=== PATIENT | female | born 1970 | race Caucasian/White ===

== ENCOUNTER 2016-09-06 14:59 | Inpatient (IN) | payer OTHER ==
[~2016-09-06] VITALS: Ht 165.1 cm; Wt 91.0 kg
[2016-09-06] VITALS (11 sets, daily range): BP systolic 117–136; BP diastolic 68–91; PULSE 96–124; RESP 16–23; O2SAT 95–100
[~2016-09-06 14:59] MED LIST: Dexamethasone 4 mg/mL Inj ONE; Glycopyrrolate 0.2 MG/ML 1mL Inj ONE; Neostigmine 1 mg/mL 10 mL Inj ONE; Ondansetron 2 mg/mL 2 mL Inj ONE; Propofol 10,000 mCg/mL 20 mL Inj ONE; Rocuronium 10 mg/mL 5 mL Inj ONE; Succinylcholine Chloride 20 mg/mL 5 mL Inj ONE; fentaNYL-PF 50 mCg/mL 2 mL Inj ONE
--- NOTE | 2016-09-06 16:14 | ED.REPORT ---
HPI-Abd Pain F 40 and Over Date of Service September 06, 2016 ED Provider: Li Nieves History of Present Illness: right side abd pain, started yesterday vomit all night long then doing dry heaves. pain is getting worse. pain subsided a little and then worse around 11. Suha is primary care 01/08 pain last had broth at 10 am, crackers at 8 am Nursing Notes Stated Complaint: LOTS OF PAIN ON RIGHT SIDE Chief Complaint: Female Abdominal Pain Nursing Notes Reviewed: Yes Allergies: Coded Allergies: Contrast Media (Verified Allergy, Intermediate, 09/06/16) ioversol (Verified Allergy, Intermediate, HIVES,SKIN RASH, 09/06/16) Scheduled Biotin (Biotin) 5,000 Mcg Tab.rapdis 2,500 MCG PO 3 times a week Calcium Carbonate (Calcium) 600 Mg Tablet 600 MG PO DAILY Cholecalciferol (Vitamin D3) (Vitamin D3) 1,000 Unit Tab.chew 1,000 UNIT PO DAILY Fish Oil/Dha/Epa (Fish Oil 1,200 mg Fish Oil) 1 Each Capsule 1 EACH PO DAILY Folic Acid (Folic Acid) 0.8 Mg Capsule 0.8 MG PO DAILY Iron (Iron) 18 Mg Tablet 18 MG PO DAILY Magnesium Oxide (Magnesium) 250 Mg Tablet 250 MG PO DAILY Multivitamin (Once Daily) 1 Each Tablet 1 EACH PO DAILY Norethindrone Acetate (Norethindrone Acetate) 5 Mg Tablet 5 MG PO DAILY [id number]/FA/Omega3/Dha/Fish Oil ( Gummies) 400 Mcg-32.5 Mg (25 Mg-7.5 Mg) Tab.chew 1 EACH PO DAILY Spironolactone (Spironolactone) 50 Mg Tablet 50 MG PO BID Vit B Comp/C/FA/Iron/Vit E (Vitamin B Complex Tablet) 1 Each Tablet 1 EACH PO DAILY Vitamin E Mixed (Vitamin E) 400 Unit Capsule 400 UNIT PO DAILY Scheduled PRN Epinephrine (Epipen 2-Marty) 0.3 Mg/0.3 Ml Auto.injct 0.3 ML [id number] ONCE PRN PRN For Anaphyllaxis General Time Seen by MD: 16:13 Chief Complaint Abdominal pain Hx Obtained From: Patient Sudden in Onset?: No Onset Occurred: Yesterday Past Medical History Past Medical History Denies: Diabetes mellitus Past Surgical History left shoulder times 2, wisdom teeth Reports: (times 2), Cholecystectomy Smoking History Current Every Day Smoker (1/2 pack a day for 30 years) Social History Alcohol Use: 1-3 per day Drug Use: Denies drug use Other Social History: Occupation work at [employer] Ambulatory Status Independent Review of Systems Basic Review of Systems Eyes: Vision NL, No discharge ENT: Hearing NL, No pain, No nasal congestion, No pharyngeal pain Hematologic: No bleeding, No bruising Endocrine: No cold intolerance, No heat intolerance, No weight gain, No weight loss Skin: No bruising, No rash, No itch Allergy / Immune: No allergy Neurologic: NL mental status, No weakness, No numbness Psychiatric: Normal thought content Physical Exam Vital Signs Vital Signs (First) Date Time Temp Pulse Resp B/P Pulse Ox O2 Delivery O2 Flow Rate FiO2 09/06/16 15:02 38.3 124 16 136/91 97 Room Air Initial VS: Reviewed, Vital signs abnormal Head / Eyes: Atraumatic, Normocephalic, PERRL ENT: Mucous membranes moist, Conjunctiva normal, No scleral icterus Neck: Supple, Non-tender, Full range of motion Lymphatic: No lymphadenopathy Extremities: Vascular intact, Neuro intact, No swelling, No tenderness Skin: Warm, Dry, No cyanosis Neurologic: Alert, Oriented, Nonfocal Psychiatric: Mood/affect normal, Behavior normal, Normal thought content General/Constitutional: Awake, Alert Distress / Hydration: Positive: Distress mild Respiratory / Chest: Atraumatic, Breath sounds NL, Breath sounds = bilat Cardiovascular: Heart rate NL, Regular rhythm, Heart sounds NL, No gallop Abdomen: Atraumatic Tenderness/Guarding/Rebound: Positive: Guarding voluntary, McBurney's point tender, Tender RLQ... (Moderate) Bowel Sounds / Distention: Positive: Bowel sounds hypoactive Back: Atraumatic, Inspection NL, Full range of motion Interpretation & Diagnostics Lab Results Interpretation Result Diagram: 09/06/16 1617 09/06/16 1617 Test 09/06/16 16:17 09/06/16 16:28 White Blood Count 12.0th/mm3 (3.8-10.1) Red Blood Count 4.57mil/mm3 (3.90-5.20) Hemoglobin 15.5g/dL (12.0-15.6) Hematocrit 44.1% (35.0-46.0) Mean Corpuscular Volume 96.5fL (81-100) Mean Corpuscular Hemoglobin 33.9pg (27.0-35.0) Mean Corpuscular Hemoglobin Concent 35.1% (32.0-37.0) Red Cell Distribution Width 12.4% (12.3-15.4) Platelet Count 163bil/L (150-400) Neutrophils (%) (Auto) 82.9% (40-74) Lymphocytes (%) (Auto) 9.3% (14-46) Monocytes (%) (Auto) 7.1% (4-12) Eosinophils (%) (Auto) 0.3% (0-5) Basophils (%) (Auto) 0.2% (0-3) Sodium Level 136mEq/L (134-144) Potassium Level 3.8mEq/L (3.5-5.2) Chloride Level 98mEq/L (97-108) Carbon Dioxide Level 20mmol/L (18-29) Blood Urea Nitrogen 13mg/dL (6-24) Creatinine 0.64mg/dL (0.57-1.00) Estimat Glomerular Filtration Rate 144mL/min (>59) Glucose Level 103mg/dL (60-99) Lactic Acid Level 1.6mmol/L (0.4-2.0) Calcium Level 9.0mg/dL (8.5-10.1) Magnesium Level 2.0mg/dL (1.6-2.6) Total Bilirubin 1.0mg/dL (0.0-1.2) Aspartate Amino Transf (AST/SGOT) 21U/L (0-50) Alanine Aminotransferase (ALT/SGPT) 23U/L (0-32) Alkaline Phosphatase 73U/L (25-150) Total Protein 7.2g/dL (6.4-8.4) Albumin 4.3g/dL (3.4-5.0) Lipase 12U/L (13-60) Urine Color Yellow (YELLOW) Urine Appearance Clear (CLEAR,HAZY) Urine pH 8.0 (5.0-8.0) Urine Specific [place] 1.015 (1.003-1.035) Urine Protein Tracemg/dL (NEG,TRACE) Urine Glucose (UA) Negativemg/dL (NEGATIVE) Urine Ketones Negativemg/dL (NEGATIVE) Urine Occult Blood Moderate (NEGATIVE) Urine Nitrite Negative (NEGATIVE) Urine Bilirubin Negative (NEGATIVE) Urine Urobilinogen Normalmg/dL (NORMAL) Urine Leukocyte Esterase Negative (NEGATIVE) Urine RBC 3-10/hpf (0-2) Urine WBC 0-5/hpf (0-5) Urine Epithelial Cells Few/hpf (NONE-MOD) Urine Crystals None seen (NONE SEEN) Urine Bacteria Few/hpf (NONE-FEW) Urine Hyaline Casts None/lpf (NONE) Urine Granular Casts None seen (NONE SEEN) Urine Waxy Casts None seen (NONE SEEN) Urine Red Blood Cell Casts None seen (NONE SEEN) Urine White Blood Cell Casts None seen (NONE SEEN) Urine Mucus None seen (None Seen) Urine Trichomonas None seen (NONE SEEN) Urine Yeast None (NONE SEEN) Urinalysis Comment None Urine Culture Reflexed Not indicated CT Abd / Pelvis Interpretation PROCEDURE: CT ABDOMEN AND PELVIS WITHOUT CONTRAST ([id number]) INDICATIONS: lower right side abd pain TECHNIQUE: After the administration of oral contrast, 5 mm thick sections acquired from the diaphragms to the symphysis. 5 mm coronal and sagittal reformats were performed. For radiation dose reduction, the following was used: automated exposure control, adjustment of mA and/or kV according to patient size. COMPARISON: None. FINDINGS: Image quality: Excellent. ABDOMEN: Lung bases: Lung bases are clear. Heart size is normal. Presumed calcified granuloma projecting the right paraspinal musculature on image 19, nonspecific. Solid organs: Liver and spleen are normal in size. Gallbladder surgically absent. Pancreas is normal in size. No adrenal nodules. Both kidneys are normal in size, without hydronephrosis or nephrolithiasis. Peritoneum and bowel: No free fluid or air. The appendix is enlarged and there is a 9 mm appendicolith present on image 60 series 2. There is periappendiceal stranding. No definite abscess identified. No extraluminal gas is seen to suggest perforation. The rectum is grossly unremarkable. No bowel obstruction Nodes and vessels: No retroperitoneal or mesenteric adenopathy by size criteria. Aorta and inferior vena cava are normal in size. Miscellaneous: Small fat-containing periumbilical hernia PELVIS: Genitourinary: Bladder wall thickness is normal. Miscellaneous: No inguinal hernias or adenopathy. Bones: No suspicious bony lesions. No vertebral body compression fractures. IMPRESSION: Acute appendicitis with large 9 mm appendicolith. No abscess or free air identified. Findings are personally telephoned and discussed with Li GORDON 1751 hours on 09/06/16 Dictated by: Benito Enriquez M.D. on 09/06/2016 at 17:43 Approved by: Benito Enriquez M.D. on 09/06/2016 at 17:52 Re-Eval/Medical Decision Med Decision/Clinical Course 45 year old female with onset of abd pain yeasterday, vomiting in the evening with pain localizing to right lower quadrant today. CT does show acute appy. Surgery is called, she will be going to surgery this evening Discharge & Departure Primary Impression: Acute appendicitis Acute appendicitis type: with localized peritonitis Qualified Code: K35.3 - Acute appendicitis with localized peritonitis Disposition: ADMITTED TO HOSPITAL Referrals: Isreal Hanson MD (PCP) EDSupervising Provider for APC: Romaine Galan DO copies to: Isreal Hanson MD, Sue ARNP September 06, 2016 16:14
[2016-09-06] MEDS ORDERED: Ondansetron 2 mg/mL 2 mL Inj IVPUSH ONE (16:25)
[2016-09-06] MEDS ORDERED: 0.9% Sodium Chloride 1,000 ML IV ONE (16:25)
[2016-09-06 16:27] LABS: BASOPHILS % (AUTO) 0.2 % (0-3); EOSINOPHILS % (AUTO) 0.3 % (0-5); MONOCYTES % (AUTO) 7.1 % (4-12); Mean Corpuscular Hemoglobin 33.9 pg (27.0-35.0); Mean Corpuscular Volume 96.5 fL (81-100); NEUTROPHILS % (AUTO) 82.9 % (40-74); Platelet Count 163 bil/L (150-400)
[2016-09-06 16:48] LABS: APPEARANCE,URINE CLEAR (CLEAR,HAZY); COLOR,URINE YELLOW (YELLOW); OCCULT BLOOD,URINE MODERATE (NEGATIVE); UROBILINOGEN,URINE NORMAL (NORMAL)
[2016-09-06] MEDS: HYDROmorphone 0.5 mg/0.5 mL iSecure Syringe IVPUSH PRN ×5 (17:00→21:13)
--- NOTE | 2016-09-06 17:53 | DRSVH ---
PROCEDURE: CT ABDOMEN AND PELVIS WITHOUT CONTRAST ([id number]) INDICATIONS: lower right side abd pain TECHNIQUE: After the administration of oral contrast, 5 mm thick sections acquired from the diaphragms to the sy mphysis. 5 mm coronal and sagittal reformats were performed. For radiation dose reduction, the foll owing was used: automated exposure control, adjustment of mA and/or kV according to patient size. COMPARISON: None. FINDINGS: Image quality: Excellent. ABDOMEN: Lung bases: Lung bases are clear. Heart size is normal. Presumed calcified granuloma projecting th e right paraspinal musculature on image 19, nonspecific. Solid organs: Liver and spleen are normal in size. Gallbladder surgically absent. Pancreas is norm al in size. No adrenal nodules. Both kidneys are normal in size, without hydronephrosis or nephroli thiasis. Peritoneum and bowel: No free fluid or air. The appendix is enlarged and there is a 9 mm appendicol ith present on image 60 series 2. There is periappendiceal stranding. No definite abscess identified. No extraluminal gas is seen to suggest perforation. The rectum is grossly unremarkable. No bowel obs truction Nodes and vessels: No retroperitoneal or mesenteric adenopathy by size criteria. Aorta and inferior vena cava are normal in size. Miscellaneous: Small fat-containing periumbilical hernia PELVIS: Genitourinary: Bladder wall thickness is normal. Miscellaneous: No inguinal hernias or adenopathy. Bones: No suspicious bony lesions. No vertebral body compression fractures. IMPRESSION: Acute appendicitis with large 9 mm appendicolith. No abscess or free air identified. Findings are per sonally telephoned and discussed with Li Nieves [facility] 1751 hours on 09/06/16 Dictated by: Benito Enriquez M.D. on 09/06/2016 at 17:43 Approved by: Benito Enriquez M.D. on 09/06/2016 at 17:52
[2016-09-06] MEDS ORDERED: MULT-666 PO (20:04)
[2016-09-06] MEDS ORDERED: SPIR50TA2 PO (20:04)
[2016-09-06] MEDS ORDERED: PNV11TAB5 PO (20:04)
[2016-09-06] MEDS ORDERED: EPIN0.3P2 INTRAMU040 (20:04)
[2016-09-06] MEDS ORDERED: NORE5TAB PO (20:04)
[2016-09-06] MEDS ORDERED: VIT1TABL83 PO (20:04)
[2016-09-06] MEDS ORDERED: CHOL10008 PO (20:04)
[2016-09-06] MEDS ORDERED: BIOT5000 PO (20:04)
[2016-09-06] MEDS ORDERED: IRON18TA PO (20:04)
[2016-09-06] MEDS ORDERED: MAGN250T29 PO (20:04)
[2016-09-06] MEDS ORDERED: VITA400C64 PO (20:04)
[2016-09-06] MEDS ORDERED: CALC600T12 PO (20:04)
[2016-09-06] MEDS ORDERED: FISH1CAP15 PO (20:04)
[2016-09-06] MEDS ORDERED: FOLI0.8C PO (20:04)
[2016-09-06] MEDS ORDERED: Lactated Ringer's 1,000 ML IV ONE (21:38)
[2016-09-06] MEDS ORDERED: Ampicillin-Sulbactam Inj 3,000 MG in 0.9% Sodium Chloride 100 ML IV ONE (21:45)
[2016-09-06] MEDS ORDERED: Bupivacaine-MPF 0.5% W/EPI 30 mL Inj INFILTRATE ONE (21:55)
--- NOTE | 2016-09-06 22:16 | PCM.HPANE ---
Patient Data Date of Service: September 06, 2016 Surgeon Admitting Provider:Ron Cedeño MD Attending Provider:Ron Cedeño MD Primary Care Physician:Isreal Hanson MD Other Provider: Reason for Visit Acute Appy Ht/WT & BMI Height (Feet): 5 Height (Inches): 5 Weight (Kilograms): 90.91 Body Mass Index Allergies Coded Allergies: Contrast Media (Verified Allergy, Intermediate, 09/06/16) ioversol (Verified Allergy, Intermediate, HIVES,SKIN RASH, 09/06/16) Past Anesthesia History Anesthesia History: Denies:: Abnormal Airway, Anesthesia Reactions, Fam Anesthesia Reaction, Malignant Hyperthermia Diabetes History Hx Diabetes?: No Medications Hypertension Medication: No Home Meds Incl Beta Ivan: No Reported Medications Vitamin E Mixed (Vitamin E)400 Unit [id number] Unit PO DAILY 30 Days 09/06/16 Cholecalciferol (Vitamin D3) (Vitamin D3)1,000 Unit Tab.chew1,000 Unit PO DAILY 09/06/16 Vit B Comp/C/FA/Iron/Vit E (Vitamin B Complex Tablet)1 Each Tablet1 Each PO DAILY 09/06/16 Spironolactone 50 Mg [id number] Mg PO BID #180 09/06/16 Hfe790/FA/Omega3/Dha/Fish Oil ( Gummies)400 Mcg-32.5 Mg (25 Mg-7.5 Mg) Tab.chew1 Each PO DAILY 09/06/16 Norethindrone Acetate 5 Mg Tablet5 Mg PO DAILY #90 09/06/16 Multivitamin (Once Daily)1 Each Tablet1 Each PO DAILY 09/06/16 Magnesium Oxide (Magnesium)250 Mg [id number] Mg PO DAILY 09/06/16 Iron 18 Mg Nunldz93 Mg PO DAILY 09/06/16 Folic Acid 0.8 Mg Capsule0.8 Mg PO DAILY 09/06/16 Fish Oil/Dha/Epa (Fish Oil 1,200 mg Fish Oil)1 Each Capsule1 Each PO DAILY 09/06/16 Epinephrine (Epipen 2-Marty)0.3 Mg/0.3 Ml Auto.injct0.3 Ml [id number] ONCE PRN For Anaphyllaxis #6 09/06/16 Calcium Carbonate (Calcium)600 Mg [id number] Mg PO DAILY 09/06/16 Biotin 5,000 Mcg Tab.rapdis2,500 Mcg PO 3 times a week 09/06/16 History History of ENT Problems?: No HEENT History: Denies:: Abnormal Airway Denture Type: None Teeth Condition: Within Normal Limits Hx of Heart Problems?: No Cardiovascular History: Denies:: Congestive Heart Failure Hypertension Hx of Respiratory Problem?: No Respiratory History: Denies:: Tuberculosis Hx Neurologic Problems?: No Hx of GI Problems?: No Hx of Problems?: No Hx Musculoskeletal Problems?: No Hx of Psycho/Social Problems?: No Hx Surgeries?: Yes Hx Diabetes: No Smoking Status: Current Every Day Smoker Stop/Bang RHEA Risk Assessment: Low Risk, <3 Yes Risk Assessment Category Category 1A: Patient has history of documented sleep apnea, and HAS NOT received any narcotic, sedative or anesthesia administration during this stay. Category 1B: Patient has history of documented sleep apnea, and HAS received any narcotic , sedative or anesthesia administration during this stay Category 2: Patient has SUSPECTED Obstructive Sleep Apnea, and HAS received any narcotic , sedative or anesthesia administration during this stay. Category 3: Patient has SUSPECTED Obstructive Sleep Apnea and HAS NOT received narcotic, sedative or anesthesia administration during this stay. Category 4: Outpatient in Procedural Areas with known sleep apnea or who screen positive for High Risk via the STOP/BANG questionnaire. Exam Exam Vital Signs Vital Signs Date Time Temp Pulse Resp B/P Pulse Ox O2 Delivery O2 Flow Rate FiO2 09/06/16 19:41 37.4 102 119/83 96 Room Air 09/06/16 18:03 105 20 124/75 96 Room Air 09/06/16 15:02 38.3 124 16 136/91 97 Room Air General Appearance: Alert, Oriented X3, Cooperative, Mild Distress HEENT/AIRWAY: MP 3 Lungs: Clear to Auscultation, Normal Air Movement Heart: Exam Unremarkable, Regular Rate/Rhythm, No Murmurs/Rubs/Gallops Meds/Labs/Diagnostics Admission Meds Current Medications Ondansetron HCl 4 mg 4 mg ONCE ONCE IVPUSH Last administered on 09/06/16 17:00 ; Start 09/06/16 at 16:25; Stop 09/06/16 at 16:31; Status DC Sodium Chloride (Normal Saline) 1,000 ml @ 0 mls/hr Q0M ONCE IV Last administered on 09/06/16 17:00; Start 09/06/16 at 16:25; Stop 09/06/16 at 16:31; Status DC Ketorolac Tromethamine (Toradol Inj) 30 mg ONCE ONCE IVPUSH Last administered on 09/06/16t 17:00; Start 09/06/16 at 16:25; Stop 09/06/16 at 16:31; Status DC Labs Test 09/06/16 16:17 09/06/16 16:28 White Blood Count 12.0th/mm3 (3.8-10.1) Red Blood Count 4.57mil/mm3 (3.90-5.20) Hemoglobin 15.5g/dL (12.0-15.6) Hematocrit 44.1% (35.0-46.0) Mean Corpuscular Volume 96.5fL (81-100) Mean Corpuscular Hemoglobin 33.9pg (27.0-35.0) Mean Corpuscular Hemoglobin Concent 35.1% (32.0-37.0) Red Cell Distribution Width 12.4% (12.3-15.4) Platelet Count 163bil/L (150-400) Neutrophils (%) (Auto) 82.9% (40-74) Lymphocytes (%) (Auto) 9.3% (14-46) Monocytes (%) (Auto) 7.1% (4-12) Eosinophils (%) (Auto) 0.3% (0-5) Basophils (%) (Auto) 0.2% (0-3) Sodium Level 136mEq/L (134-144) Potassium Level 3.8mEq/L (3.5-5.2) Chloride Level 98mEq/L (97-108) Carbon Dioxide Level 20mmol/L (18-29) Blood Urea Nitrogen 13mg/dL (6-24) Creatinine 0.64mg/dL (0.57-1.00) Estimat Glomerular Filtration Rate 144mL/min (>59) Glucose Level 103mg/dL (60-99) Lactic Acid Level 1.6mmol/L (0.4-2.0) Calcium Level 9.0mg/dL (8.5-10.1) Magnesium Level 2.0mg/dL (1.6-2.6) Total Bilirubin 1.0mg/dL (0.0-1.2) Aspartate Amino Transf (AST/SGOT) 21U/L (0-50) Alanine Aminotransferase (ALT/SGPT) 23U/L (0-32) Alkaline Phosphatase 73U/L (25-150) Total Protein 7.2g/dL (6.4-8.4) Albumin 4.3g/dL (3.4-5.0) Lipase 12U/L (13-60) Urine Color Yellow (YELLOW) Urine Appearance Clear (CLEAR,HAZY) Urine pH 8.0 (5.0-8.0) Urine Specific [place] 1.015 (1.003-1.035) Urine Protein Tracemg/dL (NEG,TRACE) Urine Glucose (UA) Negativemg/dL (NEGATIVE) Urine Ketones Negativemg/dL (NEGATIVE) Urine Occult Blood Moderate (NEGATIVE) Urine Nitrite Negative (NEGATIVE) Urine Bilirubin Negative (NEGATIVE) Urine Urobilinogen Normalmg/dL (NORMAL) Urine Leukocyte Esterase Negative (NEGATIVE) Urine RBC 3-10/hpf (0-2) Urine WBC 0-5/hpf (0-5) Urine Epithelial Cells Few/hpf (NONE-MOD) Urine Crystals None seen (NONE SEEN) Urine Bacteria Few/hpf (NONE-FEW) Urine Hyaline Casts None/lpf (NONE) Urine Granular Casts None seen (NONE SEEN) Urine Waxy Casts None seen (NONE SEEN) Urine Red Blood Cell Casts None seen (NONE SEEN) Urine White Blood Cell Casts None seen (NONE SEEN) Urine Mucus None seen (None Seen) Urine Trichomonas None seen (NONE SEEN) Urine Yeast None (NONE SEEN) Urinalysis Comment None Urine Culture Reflexed Not indicated Plan Impression Patient chart reviewed, patient interviewed and anesthestic plan with risks, benefits, and alternatives discussed, and informed consent obtained. NPO per Anesth. Guidelines: Yes ASA Physical Status: ASA2 Mod Systemic Disease Anesthetic Plan: GA Bene/Risks/Altern/Consents: Yes HP Complete Prior to Induction: Yes Jason Borden MD September 06, 2016 21:25
[2016-09-06] MEDS ORDERED: Polyethylene Glycol (PEG) 17 Gm Powder PO ONE (22:30)
[2016-09-06] MEDS ORDERED: diphenhydrAMINE 25 mg Capsule PO PRN (22:30)
[2016-09-06] MEDS ORDERED: Ondansetron 2 mg/mL 2 mL Inj IVPUSH PRN (22:30)
--- NOTE | 2016-09-06 22:38 | PCM.ANEP1 ---
Post Anesthesia Phase 1 PACU Phase 1 Assessment Date of Service: September 06, 2016 Vital Signs Vital Signs Date Time Temp Pulse Resp B/P Pulse Ox O2 Delivery O2 Flow Rate FiO2 09/06/16 22:36 36.8 107 21 132/77 95 Simple Mask 6 09/06/16 21:56 102 119/83 96 Room Air 09/06/16 19:41 37.4 102 119/83 96 Room Air 09/06/16 18:03 105 20 124/75 96 Room Air 09/06/16 15:02 38.3 124 16 136/91 97 Room Air Anesthetic Administered: GA Level of Alertness: Sleeping, hard to arouse MILLER's with Equal Strength: Yes Pain: No Nausea or Vomiting: No Cardiovascular Function and Hy: Yes Oxygen Delivery: Simple Mask Lungs: Clear to Auscultation, Normal Air Movement Complications: No Follow up Care: No Patient Instructions Provided: Yes Jason Borden MD September 06, 2016 22:38
[2016-09-06] MEDS: HYDROmorphone 1 mg/mL Inj IVPUSH PRN ×2 (23:02→23:08)
--- NOTE | 2016-09-06 23:48 | HP ---
[address] [address] HISTORY AND PHYSICAL PATIENT: LYLA AU : 1970 MR#: [id number] ADMIT: 09/06/2016 JOB ID: [id number] CHIEF COMPLAINT/IDENTIFICATION: I have been asked to see and admit this 45-year-old female with probable appendicitis. HISTORY OF PRESENT ILLNESS: Patient noted onset of right-sided abdominal pain beginning roughly 24 hours ago with associated emesis and progressively increasing pain in her right lower quadrant. She presented to the emergency department and was seen by HEIDI Mills. PAST MEDICAL HISTORY: section, laparoscopic cholecystectomy, left shoulder surgery. No medical conditions other than taking spironolactone for "female things." MEDICATIONS: Spironolactone, multiple sqvy-esc-qqeopxw vitamins. ALLERGIES: INTRAVENOUS CONTRAST MEDIA. SOCIAL HISTORY: , smokes cigarettes, drinks alcohol on a daily basis. FAMILY HISTORY: Noncontributory. REVIEW OF SYSTEMS: Per ER note, no major positives on her complete review of systems. PHYSICAL EXAMINATION: Afebrile. Pulse around 100. Blood pressure within normal limits. Lungs are clear. Heart sounds are regular. She has marked right lower quadrant tenderness to palpation. Pelvic and rectal examination is not repeated. LABORATORY DATA: White count is 12, hematocrit is 44. Chemistries are normal. Glucose is 103. Lipase is 12. LFTs are normal. IMAGING: CT scan of the abdomen and pelvis. I have reviewed the films and the report. I concur that this is consistent with appendicitis with appendicolith. IMPRESSION AND PLAN: Probable appendicitis. I have recommended proceeding with laparoscopic appendectomy. Patient agrees to proceed. The operating room crew has been called in, and we will proceed tonight.
--- NOTE | 2016-09-06 23:56 | OP ---
[address] [address] OPERATIVE REPORT PATIENT: LYLA AU : 1970 MR#: [id number] ADMIT: 09/06/2016 JOB ID: [id number] DATE OF SURGERY: 09/06/2016 SURGEON: Ron Cedeño MD PREOPERATIVE DIAGNOSIS(ES): Appendicitis. POSTOPERATIVE DIAGNOSIS(ES): 1. Appendicitis with focal perforation. 2. Gangrenous appendicitis. PROCEDURE: Laparoscopic appendectomy. INDICATIONS: A 45-year-old woman with signs and symptoms consistent with appendicitis. FINDINGS: The patient had a gangrenous appendicitis with focal perforation and contamination of the right paracolic gutter, PROCEDURE: Patient was brought to the operating room. General anesthetic was administered. Abdomen was prepped and draped in a sterile fashion. We began with an optical trocar inserted by the umbilicus. The abdomen was insufflated. There were old adhesions of the greater omentum to the left mid and upper abdomen. We placed two additional ports including a 12-mm port in the right upper quadrant using one of her previous cholecystectomy incisions. There was a little bit of cloudy free fluid in the pelvis and the cul-de-sac. The greater omentum was peeled back, and the appendix was clearly inflamed, gangrenous in appearance. We developed a window at the base of the appendix and used a single firing of the endoscopic stapler to amputate the appendix at its base. We then used cautery to go through the mesoappendix quite slowly and obtained good hemostasis. There was evidence of gangrenous changes and focal infection along the pericolic gutter, and the fluid was foul-smelling during the laparoscopy in that area. We freed up the appendix in its entirety, removed it in an Endo pouch to avoid wound contamination. We now performed irrigation on the right lower quadrant and down into the pelvis. We suctioned out all of the irrigant due to the perforation as well as fluid down in the pelvis. I placed a 19-Afghan round Saurabh-Do drain that looped along the right paracolic gutter by the appendiceal stump and then down into the pelvis. Then we brought this through the periumbilical incision. It was secured with a nylon suture and placed to bulb suction after we let our CO2 out. The other wounds were closed with absorbable suture and dry dressings were placed. The patient tolerated the procedure well.
[2016-09-07 01:00] VITALS: BP 118/76; PULSE 69; RESP 16; O2SAT 96
[2016-09-07] MEDS: HYDROmorphone 0.5 mg/0.5 mL iSecure Syringe IVPUSH PRN (02:24)
[2016-09-07] MEDS: HYDROmorphone 1 mg/mL Inj IVPUSH PRN ×5 (04:35→21:34)
[2016-09-07] MEDS: Piperacillin-Tazo 3.375 Gm Inj 3.375 GM in Dextrose 5% Minibag Plus 50 ML IV SCH ×3 (04:41→21:14)
[2016-09-07] MEDS ORDERED: Polyethylene Glycol (PEG) 17 Gm Powder ONE (04:51)
[2016-09-07 05:14] VITALS: BP 125/78; PULSE 99; RESP 16; O2SAT 96
[2016-09-07 06:22] LABS: BASOPHILS % (AUTO) 0.1 % (0-3); EOSINOPHILS % (AUTO) 0 % (0-5); MONOCYTES % (AUTO) 5.2 % (4-12); Mean Corpuscular Hemoglobin 34.1 pg (27.0-35.0); NEUTROPHILS % (AUTO) 91.6 % (40-74); Platelet Count 148 bil/L (150-400)
[2016-09-07 09:53] VITALS: BP 110/76; PULSE 95; RESP 16; O2SAT 96
[2016-09-07] MEDS: Acetaminophen IV 1,000 MG in IV Premix 1 EACH IV PRN ×2 (11:07→21:14)
--- NOTE | 2016-09-07 14:04 | PCM.PNSURG ---
Subjective Date of Service: September 07, 2016 Date of Service: September 07, 2016 Visit Information: Reason for Visit Acute Appy Surgery/Surgery Date Post-Op Day # 1 s/p lap appy Date of Admission: September 06, 2016 at 19:43 Hospital Day # Subjective: Pt seen today at bedside. Notes RLQ abdominal pain but denies fevers/chill. Notes flatus but denies BM's. Tolerating adat without nausea/vomit. Ambulating a little. Postop General: No Shortness of Breath, No Chest Pain Gastrointestinal: Tolerating Oral Feedings, No N/V, Passing Flatus Pain Management: PO, IV Push, Continued Pain Issues (right lower quadrant) Postop Activity: Ambulating Independently Objective Objective Pleasant, moderately obese female in no apparent distress. Comfortable in bed with at bedside. Afebrile. Vital Sign- Last 8 Hours Date Time Temp Pulse Resp B/P Pulse Ox O2 Delivery O2 Flow Rate FiO2 09/07/16 09:53 36.7 95 16 110/76 96 Room Air 09/07/16 08:35 Supplement Oxygen Intake and Output- Last 8 Hour 09/07/16 Cumulative From/Thru 07:00 09/06/16 15:02 - 09/07/16 05:14 Intake Total 450 ml 2050 ml Output Total 525 ml 725 ml Balance -75 ml 1325 ml Intake Oral 300 ml 300 ml IV Total 150 ml 1750 ml Output Urine Total 400 ml 400 ml Drainage Total 125 ml 325 ml General: Alert, Oriented X3, No Acute Distress Neck: Supple Lungs: Clear to Auscultation Heart: Exam Unremarkable Abdomen: Soft, Appropriately tender (incisional and right lower quadrant), Normoactive bowel tones SURGICAL WOUND : Wound General Appearence: Steri Strips, Intact Dressing & Drainage Status: Intact, Minimal, Serosanguineous Drainage Wound Drainage Type: JUAN Drain #1 (serosanguinous, minimal output) Extremities: Distal Pulses Palpable Neuro: Grossly Neurologically Intact Catheters: None Result Diagram: 09/07/16 0600 09/06/16 1617 Assessment & Plan Impression Continued leukocytosis but afebrile pod #1 s/p lap appy for acute appendicitis with perforation Problems: Plan 1. Continue current antibiotics. 2. Continue ADAT 3. Encourage ambulation. 4. AM CBC 5. Leave JUAN. Pain Management: roxicodone and dilaudid push for breakthroughl Resuscitation Status: CPR: Attempt Resuscitation Sloan Marin PA-C September 07, 2016 14:03
[2016-09-07 17:05] VITALS: BP 118/77; PULSE 90; RESP 16; O2SAT 96
[2016-09-07 21:26] VITALS: BP 119/78; PULSE 107; O2SAT 93
[2016-09-08] MEDS: HYDROmorphone 1 mg/mL Inj IVPUSH PRN ×4 (01:44→19:44)
[2016-09-08 01:48] VITALS: BP 119/83; PULSE 88; RESP 16; O2SAT 96
[2016-09-08] MEDS: Piperacillin-Tazo 3.375 Gm Inj 3.375 GM in Dextrose 5% Minibag Plus 50 ML IV SCH ×3 (04:53→21:41)
[2016-09-08 05:04] VITALS: BP 120/87; PULSE 99; RESP 17; O2SAT 94
[2016-09-08 07:42] LABS: BASOPHILS % (AUTO) 0.1 % (0-3); EOSINOPHILS % (AUTO) 0.7 % (0-5); MONOCYTES % (AUTO) 7.7 % (4-12); Mean Corpuscular Hemoglobin 34.1 pg (27.0-35.0); Mean Corpuscular Volume 99.7 fL (81-100); NEUTROPHILS % (AUTO) 79.1 % (40-74); Platelet Count 127 bil/L (150-400)
--- NOTE | 2016-09-08 11:24 | PATH ---
SURGICAL PATHOLOGY Attending Physician:Rno Cedeño MD CASE STATUS: Signed Out PATIENT NAME: LYLA AU PID: [id number] : 1970 DATE COLLECTED:09/06/2016 00:00 SPECIMEN: Appendix CLINICAL HISTORY: PERFORATED APPENDICITIS 1. APPENDIX FINAL DIAGNOSIS: 1.APPENDIX: ACUTE APPENDICITIS WITH PERFORATION. NO EVIDENCE OF MALIGNANCY. ICD10 code K35.2 GROSS DESCRIPTION: The specimen is received in formalin, labeled with the patient's name, sublabeled as appendix, and consists of an intact perforated appendix (length-5.5 cm, diameter-1.3 cm) with attached mesoappendix (up to 1.1 cm in depth). The resection margin is received stapled. The serosa is mott-red smooth and shiny and partially covered in yellow-billy exudate. The lumen contains mott-orange solid firm material. The wall (up to 0.3 cm thick) is focally hemorrhagic. No nodules, masses or lesions are identified. Ink code: black-proximal. Section code: (A, B) appendix, industrial sales representative. 09/07/16 MICRO DESCRIPTION: See diagnosis. ICD-9 CODES: CPT CODES: 1: 18634 Electronically Signed Out Olga Yadav MD [facility] Pathology [facility] [address], [place] [address] Technical component performed at [facility], [facility] [address], [place], [address]
[2016-09-08 15:00] VITALS: BP 155/75; PULSE 67; RESP 18; O2SAT 96
[2016-09-08] MEDS ORDERED: Polyethylene Glycol (PEG) 17 Gm Powder PO PRN (16:55)
[2016-09-08 18:27] VITALS: BP 110/68; PULSE 103; RESP 18; O2SAT 95
[2016-09-08 19:54] VITALS: BP 122/80; PULSE 95; RESP 17; O2SAT 98
--- NOTE | 2016-09-08 20:01 | PROG NOTE ---
[address] [address] PROGRESS NOTE PATIENT: LYLA AU : 1970 MR#: [id number] ADMIT: 09/06/2016 JOB ID: [id number] DATE: 09/08/2016 SUBJECTIVE: Postop day two, afebrile, with stable vital signs. Saurabh-Do drainage was only 40 cc over the previous 24 hours. OBJECTIVE: On examination, her abdomen is soft, tender around the incisions. She does complain of the most pain in the area that was bothering her prior to surgery. Her drain output is low but it is murky. LABORATORY DATA: Her white count has normalized. Hematocrit is 37. IMPRESSION AND PLAN: Doing well with normalized white count. We transitioned her over to oral pain medicines through the course of the day as she was on IV pain medicine still this morning. The patient was seen a 2nd time in the late afternoon or early evening and she is tolerating p.o. well. The plan will be to discharge her in the morning with her drain intact, as I am concerned about the characteristics of the drainage rather than the volume. She will go home with p.o. oxycodone and a 10 day supply of Augmentin 875 p.o. b.i.d. She should follow up with [facility] either [facility] or one of the surgeons sometime next week for evaluation of her drainage. Pathology has returned and shows no malignancy, simply consistent with a perforated appendicitis. This was discussed with the patient.
[2016-09-09] MEDS: HYDROmorphone 1 mg/mL Inj IVPUSH PRN (05:33)
[2016-09-09] MEDS: Piperacillin-Tazo 3.375 Gm Inj 3.375 GM in Dextrose 5% Minibag Plus 50 ML IV SCH (05:33)
[2016-09-09 06:11] VITALS: BP 118/75; PULSE 103; RESP 18; O2SAT 95
--- NOTE | 2016-09-09 06:19 | PCM.DC.SUR ---
Discharge Summary Date of Service: September 09, 2016 Date of Hospital Admission: September 06, 2016 at 19:43 Date of Operation(s): 09/06/2016 Date of Discharge: 09/09/2016 Diagnosis at Time of Discharge appendicitis, status post laparoscopic appendectomy Problems: Brief History and Physical: History and Physical per Dr. Gala M.D. 09/06/2016 "Patient noted onset of right-sided abdominal pain beginning roughly 24 hours ago with associated emesis and progressively increasing pain in her right lower quadrant. She presented to the emergency department and was seen by HEIDI Mills." Hospital Course: Admitted from the ER to surgical service for probable appendicitis. CT imaging was consistent with appendicitis with appendicolith. She was brought into OR for laparoscopic appendectomy found to have a gangrenous appendicitis with focal perforation and contamination of the right paracolic gutter. Appendix was removed and Saurabh-Do drain left in place. She tolerated procedure well. Postoperatively she remained mostly afebrile, though did have slight fever at 37.7 the evening of 09/08/2016. Leukocytosis resolved with white count following from 12.4 to 7.1. Her pain was controlled with IV pain meds, she was successfully transitioned to oral pain meds prior to discharge. She remained on antibiotics Zosyn IV every 8 transitioned to oral antibiotics at discharge. She was discharged home in stable condition with instructions to follow up with [facility] to monitor her JUAN drain output. Pathology: . CLINICAL HISTORY: PERFORATED APPENDICITIS SPECIMEN: Appendix FINAL DIAGNOSIS: 1.APPENDIX: ACUTE APPENDICITIS WITH PERFORATION. NO EVIDENCE OF MALIGNANCY. Olga Yadav MD [facility] Pathology [facility]. Disposition: Discharged to home in stable condition Follow-up Plan: Follow-up P clinic next week to evaluate JUAN drain and its contents Amoxicillin/Clav K 875-125 mg (Augmentin 875-125 mg) 1 Each Tablet 1 TABLET PO BID Biotin (Biotin) 5,000 Mcg Tab.rapdis 2,500 MCG PO 3 times a week (Reported) Calcium Carbonate (Calcium) 600 Mg Tablet 600 MG PO DAILY (Reported) Cholecalciferol (Vitamin D3) (Vitamin D3) 1,000 Unit Tab.chew 1,000 UNIT PO DAILY (Reported) Epinephrine (Epipen 2-Marty) 0.3 Mg/0.3 Ml Auto.injct 0.3 ML [id number] ONCE PRN PRN For Anaphyllaxis (Reported) Fish Oil/Dha/Epa (Fish Oil 1,200 mg Fish Oil) 1 Each Capsule 1 EACH PO DAILY ( Reported) Folic Acid (Folic Acid) 0.8 Mg Capsule 0.8 MG PO DAILY (Reported) Iron (Iron) 18 Mg Tablet 18 MG PO DAILY (Reported) Magnesium Oxide (Magnesium) 250 Mg Tablet 250 MG PO DAILY (Reported) Multivitamin (Once Daily) 1 Each Tablet 1 EACH PO DAILY (Reported) Norethindrone Acetate (Norethindrone Acetate) 5 Mg Tablet 5 MG PO DAILY ( Reported) Bdk695/FA/Omega3/Dha/Fish Oil ( Gummies) 400 Mcg-32.5 Mg (25 Mg-7.5 Mg) Tab.chew 1 EACH PO DAILY (Reported) Spironolactone (Spironolactone) 50 Mg Tablet 50 MG PO BID (Reported) Vit B Comp/C/FA/Iron/Vit E (Vitamin B Complex Tablet) 1 Each Tablet 1 EACH PO DAILY (Reported) Vitamin E Mixed (Vitamin E) 400 Unit Capsule 400 UNIT PO DAILY (Reported) oxyCODONE (oxyCODONE) 5 Mg Capsule 5 MG PO Q4H PRN PRN For Pain Discharge Medications: Augmentin 875 mg by mouth twice a day 10 days Oxycodone 5 mg tablets [address] tablets [address] ABDOMEN AND PELVIS WITHOUT CONTRAST IMPRESSION: Acute appendicitis with large 9 mm appendicolith. No abscess or free air identified. Dictated by: Benito Enriquez M.D. on 09/06/2016 at 17:43 VALERIE VANN DO September 09, 2016 06:19
--- NOTE | 2016-09-09 06:37 | PCM.PNSURG ---
Subjective Date of Service: September 09, 2016 Date of Service: September 09, 2016 Visit Information: Reason for Visit Acute Appy Surgery/Surgery Date Post-Op Day # 3 status post lap appy Date of Admission: September 06, 2016 at 19:43 Hospital Day # Subjective: Patient seen at bedside. Notes persistent though slowly improving discomfort in right lower quadrant and no BM. Does report extensive flatus. Denies nausea and vomiting. Denies fevers and chills. Postop General: No Shortness of Breath, No Chest Pain Gastrointestinal: Tolerating Oral Feedings, No N/V, Passing Flatus Pain Management: PO Postop Activity: Ambulating Independently Objective Objective pleasant, alert and oriented. Comfortable appearing. No apparent distress. Vital Sign- Last 8 Hours Date Time Temp Pulse Resp B/P Pulse Ox O2 Delivery O2 Flow Rate FiO2 09/09/16 06:11 37.3 103 18 118/75 95 Room Air Intake and Output- Last 8 Hour 09/09/16 Cumulative From/Thru 07:00 09/06/16 15:02 - 09/09/16 06:13 Intake Total 708 ml 4056 ml Output Total 1840 ml Balance 708 ml 2216 ml Intake Oral 600 ml 2000 ml IV Total 108 ml 2056 ml Output Urine Total 1500 ml Drainage Total 340 ml # Voids 4 5 General: Alert, Oriented X3, Cooperative, No Acute Distress Neck: Supple Lungs: Clear to Auscultation Heart: Regular Rate/Rhythm Abdomen: Soft, Appropriately tender (right lower quadrant), Non-distended, Normoactive bowel tones SURGICAL WOUND : Wound General Appearence: Steri Strips, Intact, No Erythema, No Discharge Dressing & Drainage Status: No Purulent Drainage Wound Drainage Type: JUAN Drain #1 (dark brownish red fluid approx 10cc) Result Diagram: 09/08/16 0710 09/06/16 1617 Diagnostics: Improved leukocytosis Assessment & Plan Impression satisfactory post operative course status post lap appy Problems: Plan Discharge today with oxycodone and 10 day course of Augmentin 875/125 with drain to be left in place. Record drain output daily and follow up in 1 week with PA in Surgery clinic. Pain Management: Oxycodone 5mg every 4-6 hours prn pain. Resuscitation Status: CPR: Attempt Resuscitation Sloan Marin PA-C September 09, 2016 06:37
[2016-09-09] MEDS ORDERED: OXYC5CAP4 PO (06:45)
[2016-09-09 08:00] VITALS: BP 129/84; PULSE 104; RESP 16; O2SAT 95
[2016-09-09] MEDS ORDERED: AMOX-366 PO (08:23)
--- NOTE | 2016-09-09 08:25 | PCM.DISURG ---
Surgical Discharge Instruction Date of Service September 09, 2016 Dates of Hospitalization Date of Hospital Admission September 06, 2016 at 19:43 Providers Admitting Physician: Ron Cedeño MD Primary Care Physician: Isreal Hanson MD Attending Physician: Ron Cedeño MD Discharge Diagnosis Discharge Diagnosis Appendicitis, status post laparoscopic appendectomy Post Operative diagnosis Same as above Diet Discharge Diet: No restrictions Activity Discharge Activity-General: Try not to overdue, Be up and about, Balance rest and activity Dressing and Incisional Care Dressing Care: Allow Steri Stripes to fall off Hygiene: May shower Additional Instructions Discharge Instructions Please follow up at the [facility] clinic next week to evaluate your drain. You are being discharges with a prescription for oxycodone, please take 1 tablet of this medication by mouth every 4-6 hours as needed for pain. You may also take over the counter as well as ibuprofen as needed for pain, you may alternate these medications (taking a Tylenol, then 4-6 hours later taking an ibuprofen). Please do not take more than 4,000 mg of tylenol in any 24 hour period or 2,400 mg of ibuprofen in any 24 hour period. You are also being discharged with the antibiotic medication Augmentin. Please take a 875-125mg tablet of this medication by mouth two times per day (every 12 hours) for the next 10 days - your first dose will be this evening as you were given antibiotics while in the hospital. Follow Up Plan Follow Up Plan Will follow up at the [facility] clinic next week to evaluate your abdominal drain Mid-level Provider (F9): Napoleon Gonzalez PA-C Follow-up appointment: Weeks (1-2 weeks at the [facility] clinic to evaluate drainage) VALERIE VANN DO September 09, 2016 06:04
== END 2016-09-09 10:35 | disposition home or self-care (01) | DRG 340 ==
LOC: SED 14:59 → MOC 19:43 → OBSVTOIN 19:43
PROVIDERS: ADMIT Surgery; ATTEND Surgery
PROC: 0DTJ4ZZ Resection of Appendix, Percutaneous Endoscopic Approach (ICD-10-PCS; principal; 2016-09-06 21:00)
DX: K35.3 Acute appendicitis with localized peritonitis (principal); F17.210 Nicotine dependence, cigarettes, uncomplicated